=== PATIENT | female | born 1965 | race Caucasian/White ===

== ENCOUNTER 2016-09-28 00:20 | Emergency (ER) | payer SELFPAY ==
[~2016-09-28] VITALS: Ht 157.5 cm; Wt 61.7 kg
[2016-09-28 00:32] VITALS: BP 147/90
--- NOTE | 2016-09-28 00:43 | NUR ---
PT TAKEN TO BED 8
--- NOTE | 2016-09-28 00:50 | NUR ---
BIBA WITH COMPALINT OF CHEST PAIN AND LOWER ABD PAIN STARTED THIS MORNING, NSR SHE WAS GIVEN ZOFRAN 4 MG,ODT AND ASA 325 MG ENROUTE.PATIENT STATES PAIN OF 9/10 AT THIS TIME; VSS; PATIENT POSITIONED FOR COMFORT; HOB ELEVATED; BEDRAILS UP X2; BED DOWN. ER MD MADE AWARE OF PT STATUS.
--- NOTE | 2016-09-28 01:18 | NUR ---
Dr. Saravia evaluating patient at bedside.
[2016-09-28] MEDS ORDERED: KETOROLAC 30 MG/ML VIAL IVP ONE (01:25)
[2016-09-28] MEDS ORDERED: MORPHINE SULFATE 4 MG/ML SYR IVP ONE (01:35)
[2016-09-28 01:41] LABS: BASOPHILS # (AUTO) 0.2 K/uL (0.00-0.22); BASOPHILS % (AUTO) 2.5 % (0.0-2.0); EOSINOPHILS # (AUTO) 0.2 K/uL (0-0.4); EOSINOPHILS % (AUTO) 2.3 % (0.0-4.0); HEMATOCRIT 33.6 % (36-48); HEMOGLOBIN 10.4 g/dL (12.0-16.0); LYMPHOCYTES # (AUTO) 2.9 K/uL (2.5-16.5); LYMPHOCYTES % (AUTO) 38.3 % (20.5-51.1); MEAN CORPUSCULAR HEMOGLOBIN 27 pg (27-31); MEAN CORPUSCULAR HGB CONC 31 g/dL (33-37); MEAN CORPUSCULAR VOLUME 88 fL (80-94); MONOCYTES # (AUTO) 0.9 K/uL (0.8-1.0); MONOCYTES % (AUTO) 12.5 % (1.7-9.3); NEUTROPHILS # (AUTO) 3.3 K/uL (1.8-7.7); NEUTROPHILS % (AUTO) 44.4 % (42.2-75.2); PLATELET COUNT (AUTO) 200 K/uL (140-450); RED BLOOD CELL COUNT(AUTO) 3.81 MIL/uL (4.20-5.40); RED CELL DISTRIBUTION WIDTH 14.6 % (11.6-13.7); WHITE BLOOD COUNT (AUTO) 7.5 K/uL (4.8-10.8)
--- NOTE | 2016-09-28 01:45 | NUR ---
PT TAKEN TO CT.
[2016-09-28 01:46] LABS: APPEARANCE,URINE SL CLOUDY (CLEAR); BILIRUBIN,URINE NEGATIVE (NEGATIVE); BLOOD, URINE TRACE-I (NEGATIVE); COLOR,URINE YELLOW (YELLOW); LEUKOCYTE ESTERASE ,URINE NEGATIVE (NEGATIVE); NITRITE, URINE NEGATIVE (NEGATIVE); PH,URINE 5.5 (5.0-9.0); PROTEIN,URINE NEGATIVE (NEGATIVE); UGLUCOSE NEGATIVE (NEGATIVE); UROBILINOGEN,URINE 0.2 EU/dL (0.2 - 1)
[2016-09-28 01:59] LABS: ALBUMIN 3.1 g/dL (3.4-5.0); ANION GAP 6.8 (8-16); CALCIUM 8.7 mg/dL (8.5-10.1); CARBON DIOXIDE 33.8 mmol/L (21-32); CREATININE 0.7 mg/dL (0.6-1.3); POTASSIUM 3.6 mmol/L (3.5-5.1); TOTAL BILIRUBIN 0.1 mg/dL (0.0-1.0)
[2016-09-28 02:02] LABS: BACTERIA,URINE FEW /HPF (None Seen); MUCUS,URINE 3+ /LPF (None Seen); RBC,URINE 0-5 (RARE) /HPF (0-5); SQUAMOUS EPITHELIAL CELL,UR 0-3 (FEW) /LPF (0-3 (FEW)); WBC,URINE 0-5 (RARE) /HPF (0-5)
--- NOTE | 2016-09-28 02:09 | NUR ---
PT RETURN FROM CT
--- NOTE | 2016-09-28 02:37 | NUR ---
DR. SHELTON NOTIFIED IV INSERTION UNSUCCESSFUL. POKED PT SEVERAL TIMES. DR. SHELTON SAID OK TO GIVE IM INSTEAD OF IVP FOR MORPHINE. Addendum: 09/28/16 at 0300 by MNURRCA CHARGE NURSE AWARE.
[2016-09-28] MEDS ORDERED: ONDANSETRON 4 MG ODT PO ONE (02:55)
[2016-09-28 03:48] VITALS: BP 139/78
--- NOTE | 2016-09-28 03:48 | NUR ---
Patient discharged with v/s stable. Written and verbal after care instructions given and explained. Patient alert, oriented and verbalized understanding of instructions. Ambulatory with steady gait. All questions addressed prior to discharge. ID band removed. Patient advised to follow up with PMD. Rx of ZOFRAN 8MG TABLET 1 TAB EVERY 8 HOURS NEEDED, MOTRIN 600MG 1 TAB 3 TIMES A DAY , NORCO 5MG-325MG 1 TO 2 TABS EVERY 4 HOURS given. Patient educated on indication of medication including possible reaction and side effects. Opportunity to ask questions provided and answered.
== END 2016-09-28 03:48 | disposition home or self-care (01) ==
LOC: MED 00:20
DX: R10.31 Right lower quadrant pain (principal); R07.89 Other chest pain; R11.2 Nausea with vomiting, unspecified; R00.2 Palpitations; Z90.49 Acquired absence of other specified parts of digestive tract
CPT/HCPCS: 36415; 74176; 80053; 81001; 81025; 83690; 85025; 93005; 96372; 99285; J2270; S0119; J1885